=== PATIENT | female | born 1970 | race Caucasian/White ===

== ENCOUNTER → 2017-01-06 | Outpatient (CLI) | payer MEDICAID ==
--- NOTE | ~2017-01-06 | NDGEN ---
PATIENT'S NAME: NIDIA PAREKH [facility] AGE: 46 Y [address] ROOM: [place] [id number] LOCATION: [facility] ADMIT DATE: 01/06/2017 [facility] DISCHARGE DATE: FAMILY PHYSICIAN: EVER MANDEL ATTENDING PHYSICIAN: EVER MANDEL DATE OF PROCEDURE: 01/06/2017 PROCEDURE: Nerve conduction study of the bilateral upper extremities. STUDY DATE: The patient had this study done on 01/06/2017. INDICATIONS: The patient is a 46-year-old female patient, who actually has a local swelling on the dorsum of the distal forearm near the wrist. The swelling has the consistency of a possible lipoma versus a cyst on the extensor portion of the wrist. She has pain there that is exacerbated with pronation and supination, especially when she does movements such as dishes. The patient has a full range of motion otherwise, and no weakness on the radial nerve testing. Wrist power extension and finger power extension are normal. Median and ulnar motor testing were also normal. DESCRIPTION OF TEST: Nerve conduction studies were performed in the bilateral upper extremities and compared to the right upper extremity. The median motor onset latencies and ulnar motor onset latencies along with amplitudes and nerve conduction velocities were all within normal limits. The sensory nerve action potentials were also within normal limits with normal onset latencies. Based upon the findings of these normal studies and the patient's physical exam, there was no need for a needle EMG. IMPRESSION: There was normal nerve conduction studies of the bilateral upper extremities, and there was complete symmetry in the findings on nerve conduction studies of the motor and sensory nerves. The patient likely has a local lipoma under the skin region, and has some pain locally due to pronation and supination of the wrist. POST-PROCEDURE PLAN: The patient would benefit from a trial of Kenalog into the local area for pain, and this was done at the sitting of today's nerve conduction velocity. PATIENT'S NAME: NIDIA PAREKH [facility] AGE: 46 Y [address] ROOM: [place] [id number] LOCATION: [facility] ADMIT DATE: 01/06/2017 [facility] DISCHARGE DATE: FAMILY PHYSICIAN: EVER MANDEL ATTENDING PHYSICIAN: EVER MANDEL The patient tolerated the procedure of a small injection of 10 of DICTATION ENDS HERE MD AIDAN DAS/munira /[id number] dtt: 01/11/17 1751 , EVER LUCAS dtd: 01/06/17 2045
== END | disposition disaster alternative care site (69) ==
LOC: GNEU 14:42
DX: M25.531 Pain in right wrist (principal); R20.0 Anesthesia of skin